=== PATIENT | female | born 1945 | race Caucasian/White ===

== ENCOUNTER 2016-09-02 20:19 | Emergency (ER) | payer MEDICARE, OTHER ==
[2016-09-02 20:54] VITALS: TEMP 97.3
[2016-09-02] MEDS ORDERED: LISINOPRIL 10 MG TAB PO ONE (20:54)
--- NOTE | 2016-09-02 20:57 | ED.PDOC ---
History of Present Illness - General Chief Complaint: Blood Pressure Problem Stated Complaint: high B/P Time Seen by Provider: 09/02/16 20:49 Source: patient, RN notes reviewed, Vital Signs reviewed, family Exam Limitations: no limitations - History of Present Illness Initial Comments: Patient came in because her BP has been elevated today. She started checking her BP after seeing the Opthamologist who noted the bottom # was 90 and he would not do surgery if her BP is elevated. She denies any history of hypertension. She did have a little flutter in her chest this morning when her BP was up. Otherwise she has been in her usual state of health. No headache, lightheadedness, visual changes, speech changes, chest pain, SOB, nausea, numbness, tingling or weakness. Timing/Duration: 24 hours Severity: moderate Improving Factors: nothing Worsening Factors: nothing Associated Symptoms: denies symptoms Allergies/Adverse Reactions: Allergies Penicillins Allergy (Verified 09/02/16 20:54) Hives Home Medications: Ambulatory Orders Alendronate Sodium [Fosamax] 70 mg PO .QTUESDAY 08/22/15 Lipitor 1 each PO BEDTIME 08/22/15 Lisinopril 10 mg PO DAILY #30 tab 09/02/16 Review of Systems - Review of Systems Constitutional: States: no symptoms reported. Denies: diaphoresis, malaise, weakness EENTM: States: no symptoms reported Respiratory: States: no symptoms reported. Denies: orthopnea, short of breath Cardiology: States: palpitations. Denies: chest pain, edema, syncope Gastrointestinal/Abdominal: States: no symptoms reported. Denies: abdominal pain, nausea, vomiting Genitourinary: States: no symptoms reported Musculoskeletal: States: no symptoms reported Skin: States: no symptoms reported Neurological: States: no symptoms reported. Denies: headache, numbness, paresthesia, tingling, tremors, weakness Endocrine: States: no symptoms reported Hematologic/Lymphatic: States: no symptoms reported Past Medical History (General) - Patient Medical History Hx Seizures: No Hx Stroke: No Hx Dementia: No Hx Asthma: No Hx of COPD: No Hx Cardiac Disorders: No Hx Congestive Heart Failure: No Hx Pacemaker: No Hx Hypertension: Yes Hx Thyroid Disease: No Hx Diabetes: No Hx Gastroesophageal Reflux: No Hx Renal Disease: No Hx Cancer: No Hx of HIV: No Hx Hepatitis C: No Hx MRSA: No Surgical History: no surgical history - Vaccination History Hx Tetanus, Diphtheria Vaccination: No Hx Influenza Vaccination: Yes Hx Pneumococcal Vaccination: Yes Immunizations Up to Date: Yes - Social History Hx Tobacco Use: Yes Hx Chewing Tobacco Use: No Hx Alcohol Use: No Hx Substance Use: No Hx Substance Use Treatment: No Hx Depression: No Feels Threatened In Home Enviroment: No Feels Threatened In a Relationship: No Hx Physical Abuse: No Hx Emotional Abuse: No Hx Suspected Abuse: No Family Medical History - Family History Father Living Status: Hx Family Cancer: Yes Physical Exam - Physical Exam General Appearance: Alert, Comfortable, No apparent distress, Well Developed, Well Groomed, Well Hydrated, Well Nourished Eye Exam: bilateral normal Ears, Nose, Throat: hearing grossly normal Neck: non-tender, full range of motion, supple, normal inspection Respiratory: chest non-tender, no respiratory distress, no accessory muscle use , wheezing - mild Cardiovascular/Chest: regular rate, rhythm, no edema, no gallop, no JVD, no murmur Gastrointestinal/Abdominal: normal bowel sounds, non tender, soft Extremity: normal range of motion, non-tender, normal inspection, no pedal edema Neurologic: no motor/sensory deficits, alert, normal mood/affect, oriented x 3 Skin Exam: normal color, warm/dry Comments: Vital Signs - 8 hr 09/02/16 20:35 Temperature 97.3 F L Pulse Rate [ 97 H monitor] Respiratory 16 Rate Blood Pressure 179/124 [Left Arm] O2 Sat by Pulse 95 Oximetry Last Vital Signs Temp 97.3 F L 09/02/16 20:35 Pulse 82 09/02/16 22:03 Resp 18 09/02/16 21:19 BP 172/99 09/02/16 22:03 Pulse Ox 97 09/02/16 21:19 Progress - Progress Progress: 09/02/16 22:04 BP is slowly improving. Will d/c home and follow up with PCP tomorrow - EKG/XRAY/CT EKG: Sinus, LVH, no ST T wave changes Departure - Departure Clinical Impression: Hypertension Qualifiers: Hypertension type: essential hypertension Qualifier Code: (I10) Essential ( primary) hypertension Time of Disposition: 22:05 Disposition: Discharge to Home or Self Care Condition: Good Departure Forms: ED Discharge - Pt. Copy, Patient Portal Self Enrollment Instructions: DI for High Blood Pressure Diet: resume usual diet Activity: increase activity as tolerated Referrals: Mathieu Fan MD [Primary Care Provider] - 1-2 Days Prescriptions: Lisinopril 10 mg PO DAILY #30 tab Home Medications: Ambulatory Orders Alendronate Sodium [Fosamax] 70 mg PO .QTUESDAY 08/22/15 Lipitor 1 each PO BEDTIME 08/22/15 Lisinopril 10 mg PO DAILY #30 tab 09/02/16
--- NOTE | 2016-09-02 21:24 | RAD ---
PROCEDURE: XR CHEST 1 VIEW HISTORY: palpitations/elevated BP COMPARISON: None TECHNIQUE: Single projection of the chest was done. FINDINGS: The lung breaux are well inflated . There are no discrete airspace infiltrates, pneumothoraces or pleural effusions. The pulmonary vascularity is normal. The cardiomediastinal silhouette is unremarkable for patient's age and sex. IMPRESSION: There is no acute pleural-parenchymal process seen in the imaged lung breaux. Location of Interpretation: [facility] Electronically signed by: Delfino Xiao MD 09/02/2016 9:24 PM CDT
[2016-09-02 22:05] VITALS: BP 172/99
[2016-09-02 22:09] VITALS: O2SAT 95
== END 2016-09-02 22:15 | disposition home or self-care (01) ==
LOC: ER 20:19
DX: I10 Essential (primary) hypertension (principal); Z88.0 Allergy status to penicillin; Z87.891 Personal history of nicotine dependence; Z79.899 Other long term (current) drug therapy

== ENCOUNTER → 2016-09-03 | Outpatient (CLI) | payer MEDICARE, OTHER | END | disposition home or self-care (01) | LOC: GMA 14:20 | PROVIDERS: ATTEND Nurse Practitioner Family | DX: R94.31 Abnormal electrocardiogram [ECG] [EKG] (principal); R06.02 Shortness of breath ==

== ENCOUNTER → 2017-02-14 | Outpatient (CLI) | payer MEDICARE, OTHER | END | disposition home or self-care (01) | LOC: LAB.O 11:04 | PROVIDERS: ATTEND Family Medicine | DX: R19.7 Diarrhea, unspecified (principal) ==

== ENCOUNTER 2017-02-17 09:23 | Emergency (ER) | payer MEDICARE, OTHER ==
[2017-02-17 09:35] VITALS: TEMP 97
[2017-02-17] MEDS ORDERED: SODIUM CHLORIDE 0.9% (FLUSH) 10 ML SYG IV PRN (09:41)
--- NOTE | 2017-02-17 09:50 | ED.PDOC ---
History of Present Illness - General Chief Complaint: General Stated Complaint: head feels funny and palpatations Time Seen by Provider: 02/17/17 09:34 Source: patient Exam Limitations: other - PT IS A POOR HISTORIAN - History of Present Illness Initial Comments: PT REPORTS ONSET OF PALPITATIONS THIS AM DESCRIBED FEELING LIKE HER HEART WAS RACING. PT REPORTS SYMPTOMS ARE ASSOCIATED WITH A FUNNY FEELING IN HER HEAD. PT IS VAGUE WHEN IT PERTAINS TO THE DESCRIPTION OF THIS FUNNY FEELING. SHE DENIES SEVERE HEADACHE OR CHEST PAIN. STATES THAT SYMPTOMS LASTED APPROXIMATELY 30 MINUTES AND DENIES SYMPTOMS CURRENTLY. PT REPORTS SIMILAR PREVIOUS EPISODES 2 OR 3 TIMES RECENTLY. Timing/Duration: intermittent, resolved prior to arrival Severity: mild Improving Factors: nothing Worsening Factors: nothing Associated Symptoms: denies symptoms Allergies/Adverse Reactions: Allergies Penicillins Allergy (Verified 02/17/17 09:28) Hives Home Medications: Ambulatory Orders Alendronate Sodium [Fosamax] 70 mg PO .QTUESDAY 08/22/15 Lipitor 10 mg PO BEDTIME 08/22/15 Lisinopril 10 mg PO DAILY #30 tab 09/02/16 Review of Systems - Review of Systems Constitutional: Denies: chills, fever EENTM: Denies: double vision, nose congestion Respiratory: Denies: cough, short of breath Cardiology: States: see HPI, palpitations. Denies: chest pain Gastrointestinal/Abdominal: Denies: abdominal pain, nausea, vomiting Genitourinary: Denies: dysuria, hematuria Musculoskeletal: Denies: joint pain, joint swelling Skin: Denies: change in color, lesions Neurological: States: no symptoms reported Endocrine: States: no symptoms reported Past Medical History (General) - Patient Medical History Hx Seizures: No Hx Stroke: No Hx Dementia: No Hx Asthma: No Hx of COPD: No Hx Cardiac Disorders: No Hx Congestive Heart Failure: No Hx Pacemaker: No Hx Hypertension: Yes Hx Thyroid Disease: No Hx Diabetes: No Hx Gastroesophageal Reflux: No Hx Renal Disease: No Hx Cancer: No Hx of HIV: No Hx Hepatitis C: No Hx MRSA: No Surgical History: no surgical history - Vaccination History Hx Tetanus, Diphtheria Vaccination: No Hx Influenza Vaccination: No Hx Pneumococcal Vaccination: No Immunizations Up to Date: No - Social History Hx Tobacco Use: No Hx Chewing Tobacco Use: No Hx Alcohol Use: No Hx Substance Use: No Hx Substance Use Treatment: No Hx Depression: No Feels Threatened In Home Enviroment: No Feels Threatened In a Relationship: No Hx Physical Abuse: No Hx Emotional Abuse: No Hx Suspected Abuse: No - Female History Patient is a Female of Child Bearing Age (10 -59 yrs old): No Patient : No Family Medical History - Family History Father Living Status: Hx Family Cancer: Yes Physical Exam - Physical Exam General Appearance: Alert, Comfortable, No apparent distress, Well Developed, Well Groomed, Well Hydrated Ears, Nose, Throat: hearing grossly normal Neck: normal inspection Respiratory: chest non-tender, normal breath sounds, no respiratory distress, no accessory muscle use Cardiovascular/Chest: regular rate, rhythm, no murmur Gastrointestinal/Abdominal: normal bowel sounds, non tender, soft Extremity: normal range of motion, normal inspection, no pedal edema Neurologic: alert, normal mood/affect, oriented x 3 Skin Exam: normal color, warm/dry Progress - Progress Progress: 02/17/17 09:54 PT BEGAN HAVING NON SUSTAINED RUNS OF VTACH AT A RATE IN THE 160S. AMIODARONE ORDERED. 02/17/17 10:[address] KNOWLES AT [facility] AND TRANSFER ARRANGEMENTS MADE. - Results/Orders Results/Orders: 02/17/17 09:41 Sodium Chloride 0.9% (Flush) [Saline Flush Syringe] 10 ml IV PRN PRN 02/17/17 09:42 IV Care:Saline Lock per Protoc QSHIFT Telemetry .ONCE EKG Assessment ONCE EKG Stat Pulse Ox Stat Pulse Oximetry Assessment DAILY 02/17/17 09:43 UA [URINALYSIS] Stat 02/17/17 09:55 B-TYPE NATRIURETIC PEPTIDE/BNP Stat CARDIAC PANEL,ER Stat D-DIMER,QUANTITATIVE Stat 02/17/17 09:56 Amiodarone IV (Maint) [Cordarone IV (Maint)] 900 mg Dextrose 5% (Sasha) 500Ml [D5W 500ml (SASHA BAG)] 500 ml IVPB PRN Laboratory Results - last 24 hr 02/17/17 02/17/17 09:55 09:57 WBC 11.4 H RBC 5.19 Hgb 14.7 Hct 46.0 MCV 88.5 MCH 28.3 MCHC 31.9 L RDW 13.8 Plt Count 265 MPV 9.0 Absolute Neuts (auto) 5.70 Absolute Lymphs (auto) 4.20 H Absolute Monos (auto) 1.00 H Absolute Eos (auto) 0.40 Absolute Basos (auto) 0.10 Neutrophils % 49.7 Lymphocytes % 36.6 Monocytes % 8.9 Eosinophils % 3.6 Basophils % 1.2 Sodium 138 Potassium 4.0 Chloride 105 Carbon Dioxide 28 Anion Gap 9.0 L BUN 11 Creatinine 0.86 BUN/Creatinine Ratio 12.8 Random Glucose 97 Serum Osmolality 275.0 Calcium 9.2 Magnesium 2.0 2.0 Creatine Kinase 56 - EKG/XRAY/CT EKG: Sinus - @93BPM, NL INTERVALS, LVH, Abnormal Q waves - DEEP Q WAVES IN THE INFERIOR, ANTERIOR LATERAL LEADS. LATERAL LEAD Q WAVES ARE NEW COMPARED TO PREVIOUS FROM 09/02/16 XRAY: chest - NORMAL PER RAD Departure - Departure Clinical Impression: Ventricular tachycardia (paroxysmal) Time of Disposition: 10:13 Disposition: Transfer to Hospital Condition: Fair Departure Forms: ED Discharge - Pt. Copy, Patient Portal Self Enrollment Referrals: Mathieu Fan MD [Primary Care Provider] - 1-2 Weeks Home Medications: Ambulatory Orders Alendronate Sodium [Fosamax] 70 mg PO .QTUESDAY 08/22/15 Lipitor 10 mg PO BEDTIME 08/22/15 Lisinopril 10 mg PO DAILY #30 tab 09/02/16 Transfer to Outside Facility - Transfer Information Accepting Provider:: DR. KNOWLES Accepting Facility: [facility] Reason for Transfer: required specialist not available - [employer]
[2017-02-17] MEDS ORDERED: AMIODARONE HCL 150 MG/3 ML VIAL IVPB ONE (09:53)
[2017-02-17] MEDS ORDERED: DEXTROSE 5% 100ML 100 ML IVPB ONE (09:55)
[2017-02-17] MEDS ORDERED: AMIODARONE IV (LOAD) 150 MG in DEXTROSE 5% 100ML 100 ML IVPB ONE (09:55)
[2017-02-17] MEDS ORDERED: AMIODARONE IV (MAINT) 900 MG in DEXTROSE 5% (AVIVA) 500ML 500 ML IVPB SCH (09:56)
[2017-02-17] MEDS ORDERED: AMIODARONE HCL 900 MG/18 ML VIAL IVPB ONE ×2 (10:02→10:05)
[2017-02-17] MEDS ORDERED: DEXTROSE 5% (AVIVA) 500ML 500 ML IVPB ONE (10:02)
--- NOTE | 2017-02-17 10:08 | RAD ---
EXAM DESCRIPTION: Chest,1 View CLINICAL HISTORY: 71 years,Female,palpitations COMPARISON: September 12 FINDINGS: Lung breaux are clear, no consolidation, effusions, or nodules. Heart size and pulmonary vascularity are normal. Bony elements are unremarkable for age. IMPRESSION: Unremarkable chest. Stable Electronically signed by: Alin Hoffmann MD 02/17/2017 10:07 AM CDT
[2017-02-17 13:10] VITALS: BP 142/85; O2SAT 98
== END 2017-02-17 13:10 | disposition short-term general hospital (02) ==
LOC: ER 09:23
DX: I47.2 Ventricular tachycardia (principal); I10 Essential (primary) hypertension; Z88.0 Allergy status to penicillin
CPT/HCPCS: 36415; 71010; 80048; 82550; 82553; 83735; 83880; 84484; 85025; 85379; 85610; 85730; 93005; J0282; J7060

== ENCOUNTER → 2017-03-24 | Outpatient (CLI) | payer MEDICARE, OTHER | END | disposition home or self-care (01) | LOC: GMAH 11:20 | PROVIDERS: ATTEND Family Medicine | DX: E78.2 Mixed hyperlipidemia (principal) ==

== ENCOUNTER → 2017-03-26 | Outpatient (CLI) | payer MEDICARE, OTHER | END | disposition home or self-care (01) | LOC: GMAH 14:40 | PROVIDERS: ATTEND Family Medicine | DX: N39.0 Urinary tract infection, site not specified (principal) ==

== ENCOUNTER → 2017-04-03 | Outpatient (CLI) | payer MEDICARE, OTHER | LOC: MAMMO 15:29 | PROVIDERS: ATTEND Family Medicine | DX: Z12.31 Encounter for screening mammogram for malignant neoplasm of breast (principal) | CPT/HCPCS: 77063; G0202 ==

== ENCOUNTER → 2020-03-09 | Outpatient (CLI) | payer MEDICARE, OTHER | LOC: GMA MATASK 10:47 | PROVIDERS: ATTEND Family Medicine | DX: E78.2 Mixed hyperlipidemia (principal); I10 Essential (primary) hypertension ==